=== PATIENT | female | born 1985 | race Caucasian/White ===

== ENCOUNTER 2024-12-20 15:02 | Outpatient (AMB) | payer BC, SELFPAY ==
--- NOTE | 2024-12-20 15:17 | A.OFFVIS_ITS ---
Intake Visit Reasons: 3 Months/ Migrane Allergies penicillin V Allergy (Unknown, Verified 12/21/14 00:00) rash HPI Comments Details: The patient is a 39-year-old female presenting for a follow-up regarding her management of migraine and restless legs syndrome. She has been using Emgality for her migraines and reports a decrease in both the frequency and severity of her headaches since starting this treatment. Occasionally, when a headache does occur, she uses Alpax, but no additional details about its usage were provided. Regarding her restless legs syndrome, the patient mentions that her symptoms are well-managed, and she continues using a medication unspecified as the old pen, indicating stability in her condition. She also reports maintaining a good sleep schedule, averaging seven to eight hours per night, which suggests her conditions are not significantly affecting her sleep. [facility] Medical History (Updated 12/20/24 @ 15:18 by Abby Celaya MD) RLS (restless legs syndrome) Menstrual migraine Status migrainosus Insomnia Migraine Review of Systems Const Details: - Neurological: Reports improvement in migraine frequency and intensity with Emgality. Denies any exacerbation of migraine symptoms. Reports restless legs syndrome is well-managed. - Sleep: Reports sleeping seven to eight hours per night. - Psychiatric: Denies any questions or concerns during this visit. Physical Exam Neuro Other: Mental Status: Alert and oriented to person, place, and time. Normal attention. Normal spontaneous speech, fluency, and comprehension. No obvious issues with mood and memory. Affect is appropriate. Cranial Nerves: CN II: Visual darden full to confrontation, visual acuity intact. CN III, IV, : Pupils equal, round, reactive to light and accommodation. Extraocular movements are normal. CN V: Facial sensation is normal. CN VII: Facial movements symmetrical. CN VIII: Hearing intact to bedside conversation is normal. CN IX, X: Palate elevates symmetrically. CN XI: Shoulder shrug and head turn symmetrical. CN XII: Tongue midline without atrophy or fasciculations. Extrapyramidal: Full facial expressions and blinking. No rigidity. Movements are appropriate with no tremor or abnormality. Speech: Normal; no dysarthria or tremor. Assessment & Plan Assessment & Plan (1) Menstrual migraine: Code(s): G43.829 - Menstrual migraine, not intractable, without status migrainosus Category: Medical Qualifiers: Status migrainosus presence: without status migrainosus Intractability: not intractable Qualified Code(s): G43.829 - Menstrual migraine, not intractable, without status migrainosus (2) Migraine: Code(s): G43.909 - Migraine, unspecified, not intractable, without status migrainosus Category: Medical Qualifiers: Migraine type: migraine (< 15 days per month) without aura Status migrainosus presence: without status migrainosus Intractability: not intractable Qualified Code(s): G43.009 - Migraine without aura, not intractable, without status migrainosus (3) RLS (restless legs syndrome): Code(s): G25.81 - Restless legs syndrome Category: Medical (4) Insomnia: Code(s): G47.00 - Insomnia, unspecified Category: Medical Qualifiers: Insomnia type: unspecified Qualified Code(s): G47.00 - Insomnia, unspecified Plan Impression: a: Migraine w/o aura b: Menstrual migraine c: RLS d: Insomnia Rec: a: Emgality 120 mg every month injection b: Topiramate 100mg one at night c: Eletriptan 40mg one PRN d: Gabapentin 300mg one at bedtime e: Trazodone 50mg one at bedtime PRN Coding Level of Care Code Tele Est Pt Level 4 (89582) Diagnoses Menstrual migraine without status migrainosus, not intractable G43.829 Status migrainosus presence: without status migrainosus Intractability: not intractable Migraine without aura and without status migrainosus, not intractable G43.009 Migraine type: migraine (< 15 days per month) without aura Status migrainosus presence: without status migrainosus Intractability: not intractable RLS (restless legs syndrome) G25.81 Insomnia, unspecified type G47.00 Insomnia type: unspecified
--- OUTSIDE RECORDS SUMMARY | 2024-12-20 16:20 | XMS_ITS | Clinical Summary ---
Author Organization [facility] Address [address] [place] [id number] Phone Care Team Providers Care Cdl Driver Name Role Phone Ciaran Donovan Primary Care Provider Dejuan Bruce MD Unavailable [phone] Hair Lee MD, [place] Unavailable [phone] Allergies Active Allergy Reactions Criticality Noted Date Comments Amoxicillin Hives 12/30/2017 Medications omeprazole (PRILOSEC) 20 MG capsule Take 2 capsules by mouth daily. Active albuterol 90 mcg/actuation inhalerIndicati ons:Exercise-in duced bronchoconstric tion,COVID-19 Inhale 2 puffs into the lungs every 4 (four) hours as needed for wheezing. 18 g 5 08/30/2021 Active beclomethasone (QVAR REDIHALER) 80 mcg/actuation inhalerIndicati ons:Exercise-in duced bronchoconstric tion,COVID-19 Inhale 1-2 puffs into the lungs 2 (two) times a day. 10.6 g 1 08/30/2021 Active topiramate (TOPAMAX) 50 MG tablet Take 50 mg by mouth 2 (two) times a day. Active Active Problems Problem Noted Date Diagnosed Date Advice given about COVID-19 virus infection 11/24 Assessment & Plan (12/08/2019 4:59 PM EDT): We reviewed in great detail what is known and what is still unknown about SARS-CoV-2 and the ongoing COVID-19 pandemic. We reviewed our current community case prevalence and community transmission rates. We reviewed that this is a moving target. We also reviewed the approach I take in such circumstances weighing risks and benefits, and that this is an individual decision where she needs to weigh her risk threshold with perceived risks and benefits. She understands that there is no 100% safe activity these days, not even just going to the grocery store. It is all about the degree of risk and perceived benefits which need to be weighed. With regards to her personal risk of severe COVID-19 infection, we reviewed the fact that young and healthy individuals have of the disease and chronically ill centenarians have survived it, and that such discrepancy is still poorly understood. Therefore, no one should feel immune to the disease, however has a whole, her risk of severe disease probably falls within a lower risk category despite her mild exercise-induced bronchoconstriction. I tried to answer all her questions to the best of my abilities. She should feel free to call me with any additional questions or concerns she may have. Gastroesophageal reflux disease with esophagitis 12/30/2017 Assessment & Plan (12/30/2017 3:46 PM EDT): Continue with PPI per GI. Exercise-induced bronchoconstriction 12/30/2017 Assessment & Plan (12/08/2019 4:56 PM EDT): Continue with as needed albuterol prior to exercise. Assessment & Plan (12/30/2017 3:45 PM EDT): Well-controlled with albuterol inhaler, with which she premedicate prior to exercise. PFT in June 2014 were normal. Defer further management to her PCP. Pulmonary nodules 12/30/2017 Assessment & Plan (12/30/2017 3:46 PM EDT): Stable at a two-year interval, further dedicated imaging not indicated. Thoracic neuralgia 12/30/2017 Assessment & Plan (12/30/2017 3:48 PM EDT): The distribution of her symptoms as well as the description and nature of the pain and discomfort suggests a neurologic etiology. I wonder if this may not be a consequence of her prior history of zoster. Her CT scan in September 2016 revealed no pulmonary emboli and an essentially normal pulmonary parenchyma; her pain long predated that study. Therefore, I do not believe she warrants any further pulmonary evaluation. I have advised to discuss with her PCP whether initiation of an agent to help with nerve pain, such as amitriptyline, should be considered. Additionally, a consultation with a pain anesthesia specialist with an expertise in chest wall disease may be helpful. Finally, though I am less suspicious for that, imaging of her thoracic spine could also be considered to rule out a nerve root impingement process. Will defer further evaluation and management to her PCP at this time. Family History Medical History Relation Comments Atrial fibrillation Father CV disease Father Arthritis Paternal Grandmother Chronic bronchitis Paternal Grandmother Relation Status Comments Father Paternal Grandmother Social History Tobacco Use Types Packs/Day Years Used Date Smoking Tobacco: Never Smokeless Tobacco: Never Education Answer Date Recorded Are you interested in more education? Not on jack e 08/21/2022 Are you concerned about learning? Not on file 08/21/2022 No 08/21/2022 No 08/21/2022 Digital Access Answer Date Recorded No 09/21/2022 No 09/21/2022 Reliable internet access at home? Not on file 09/21/2022 Device with a working camera? Not on file Comments Unknown Sex and Gender Information Value Date Recorded Sex Assigned at Not on file Legal Sex Female 8:06 AM EST Gender Identity Not on file Sexual Orientation Not on file Last Filed Vital Signs Vital Sign Reading Time Taken Comments Blood Pressure 122/77 12/08/2019 3:41 PM EDT Pulse 67 12/08/2019 3:41 PM EDT Temperature 36.3 C (97.4 F) 12/21/2016 1:11 AM EDT Respiratory Rate - - Oxygen Saturation 99% 12/08/2019 3:41 PM EDT Inhaled Oxygen Concentration - - Weight 81.6 kg (180 lb) 12/08/2019 3:41 PM EDT Height 170.2 cm (5' 7 ) 12/21/2016 1:11 AM EDT Body Mass Index 28.19 12/21/2016 1:11 AM EDT Plan of Treatment Health Maintenance Due Date Last Done Comments Adult Td,Tdap Booster 1983 DEPRESSION SCREENING 1995 HEPATITIS C SCREENING 09/03/2001 HIV ONE-TIME SCREENING (18-6 5 YEARS) 09/03/2001 PAP SMEAR 09/03/2004 MAMMOGRAM 2023 COVID-19 VACCINE (2 2023-2 5 season) 2023 06/29/2020 SMOKING STATUS SCREENING (On ce After 26 Yrs) Completed 12/08/2019 HEPATITIS A VACCINES Aged Out No long er eligible based on patient's age to complete this topic HIB VACCINES Aged Out No longer eligi ble based on patient's age to complete this topic MENINGOCOCCAL VACCINES (ACWY) Aged Out No longer eligible based on patient's age to complete this topic MENINGOCOCCAL VACCINES (B) Aged Out N o longer eligible based on patient's age to complete this topic PNEUMOCOCCAL VACCINES (0-49 years) Aged Out No longer eligible based on patient's age to complete this topic Medical Devices Not on file [facility] HMO POS [address] [place], [place] [id number] POS Care Teams Cdl Driver Relationship Specialty Start Date End Date Ciaran Donovan DO [address] [facility] [place] [address] PCP - General 06/27/14 Dejuan Bruce MD [address] [place] [id number] [email or web address] Historical LMR Provider 02/11/17 Hair Lee MD, MS [address] [place] [id number] [email or web address] Historical LMR Provider 02/11/17 Additional Source Comments The information contained in this document represents components of the legal health record. It is not the complete legal health record.[facility]
--- OUTSIDE RECORDS SUMMARY | 2024-12-20 16:20 | XMS_ITS ---
Author Name [facility] Organization Unknown Care Team Organization Name Specialty Phone Email Start Date End Da te [facility] 023 07/28/2024 [facility] 023 02/02/2023
== END 2024-12-20 15:25 | disposition home or self-care (01) ==
PROVIDERS: PCP Family Medicine; Referring Provider Family Medicine; Visit Provider Psychiatry & Neurology Neurology
DX: G43.829 Menstrual migraine, not intractable, without status migrainosus (principal); G43.009 Migraine without aura, not intractable, without status migrainosus; G25.81 Restless legs syndrome; G47.00 Insomnia, unspecified
CPT/HCPCS: 99214